=== PATIENT | male | born 1975 | race Caucasian/White ===

== ENCOUNTER 2019-06-23 21:18 | Observation (INO) ==
[2019-06-23] MEDS ORDERED: PREDNISONE PO ONE (21:56)
[2019-06-23] MEDS ORDERED: ZYRTEC PO ONE (21:56)
[2019-06-23] MEDS ORDERED: BENADRYL IV ONE (22:00)
[2019-06-23] MEDS ORDERED: EPIPEN IM ONE (22:00)
[2019-06-23] MEDS ORDERED: EPINEPHRINE IM ONE (22:15)
[2019-06-23 22:40] LABS: BASO# 0.02 X1000 (0.0-0.2); BASO% 0.2 % (0.0-0.8); EOS# 0.64 X1000 (0.0-0.7); EOS% 4.9 % (0.0-10.0); HEMATOCRIT 43.5 % (42.0-52.0); HEMOGLOBIN 14.7 g/dL (14.0-18.0); IMM GRAN# 0.03 X1000 (0.0-0.04); IMM GRAN% 0.2 % (0.0-0.5); LYMPH# 4.23 X1000 (1.2-3.4); LYMPH% 32.5 % (20.5-51.1); MCH 29.1 PG (27-31); MCHC 33.8 g/dL (33-37); MONO# 0.86 X1000 (0.11-0.59); MONO% 6.6 % (1.7-9.3); MPV 11.4 FL (7.4-10.4); NEUT# 7.22 X1000 (1.4-6.5); NEUT% 55.6 % (42.2-75.2); PLT 232 X1000 (130-400); RBC 5.06 XMIL (4.7-6.1); RDW 12.7 % (11.5-14.5)
[2019-06-23 23:16] LABS: AGAP 11; ALB/GLOB RATIO 1.4; ALBUMIN 3.9 g/dL (3.5-5.0); ALKALINE PHOSPHATASE 61 U/L (32-122); BUN 20 mg/dL (8-22); CALCIUM 8.9 mg/dL (8.8-10.2); CHLORIDE 104 mmol/L (98-107); COSMO 281; CREATININE 1.2 mg/dL (0.7-1.2); ESTIMATED GFR > 60; GLUCOSE 110 mg/dL (70-104); GOT 19 U/L (10-34); GPT 16 U/L (10-44); SODIUM 139 mmol/L (136-145); TCO2 24 mmol/L (25-35); TOTAL BILIRUBIN 0.57 mg/dL (0.20-1.00); TOTAL PROTEIN 6.7 g/dL (6.3-8.3)
[2019-06-23] MEDS ORDERED: NS 1,000 ML IV SCH (23:45)
[2019-06-24] MEDS: PEPCID IV SCH ×2 (00:15→13:20)
[2019-06-24] MEDS ORDERED: SODIUM CHLORIDE 0.9% INJ SCH (00:15)
[2019-06-24] MEDS: SOLU-MEDROL IV SCH ×2 (00:30→10:42)
--- NOTE | 2019-06-24 02:39 | PROVIDER DOCUMENTATION ---
This chart was entered by Dedra Thorne Scribe, acting as scribe for Antwon Grimes MD. HPI-Rash/Wound/ReCheck - General Chief Complaint: Allergic Reaction Stated Complaint: "ANGIOEDEMA, HIVES" Time Seen by Provider: 06/23/19 21:45 Source: patient Allergies/Adverse Reactions: Allergies Allergy/AdvReac Type Severity Reaction Status Date / Time povidone-iodine AdvReac RASH Verified 05/09/19 14:34 [From Betadine] soap [From Betadine] AdvReac RASH Verified 05/09/19 14:34 Home Medications: Home Medication List Medication Instructions Recorded Confirmed Last Taken Type Famotidine [Pepcid] 20 mg PO DAILY 06/24/19 06/24/19 Unknown History Loratadine 10 mg PO DAILY 06/24/19 06/24/19 Unknown History - History of Present Illness-Dermatology Nature of Presenting Problem: Pt is a 44 yr old male presenting with allergic reaction, swelling to face, eyes, mouth, tongue. Pt denies any shortness of breath, cough or chest pain. Pt reports hx of same previously which did improve with steroids at home. This episode today started this evening after dinner. The patient did try to take some of his loratidine and famotidine without improvement. Pt denies any allergen contact, but does report allergy to iodine. Pt denies abdominal pain. Pt does report previous hx of hives. Location: reports: face Severity: reports: moderate Onset/Duration: reports: 1-3 hours ago Timing: reports: still present, changing over time Context/Associated Symptoms: reports: edema (face) Identifiable cause?: No Exposure: reports: unknown cause Modifying Factors: improves with: antihistamine (no relief), prednisone (previous episodes) Locality of Occurance: Home Similar Symptoms Previously?: Yes Recently seen or treated by another doctor?: No Review of Systems - Adult - REVIEW OF SYSTEMS - ADULT Constitutional: reports: no symptoms reported Eyes: reports: other (swelling around eyes) Ears, Nose, Mouth & Throat: reports: no symptoms reported. denies: throat swelling Cardiovascular: reports: no symptoms reported. denies: chest pain Respiratory: reports: no symptoms reported. denies: shortness of breath Gastrointestinal: reports: no symptoms reported. denies: abdominal pain Genitourinary: reports: no symptoms reported. denies: flank pain Musculoskeletal: reports: no symptoms reported. denies: back pain Integumentary: reports: no symptoms reported Neurological: reports: no symptoms reported Psychiatric: reports: no symptoms reported. denies: alcohol/drug dependence Endocrine: reports: no symptoms reported Hematologic/Lymphatic: reports: no symptoms reported Allergic/Immunologic: reports: food allergy, other (angioedema) Past History - Adult - PAST MEDICAL HISTORY-ADULT Review of Records: reports: Old Records Reviewed, Nursing Assessment Review, Medications Reviewed Cardiovascular: reports: denies history Respiratory: reports: denies history Gastrointestinal: reports: denies history Obstetrical/Gynecological: reports: denies history Genitourinary: reports: denies history Musculoskeletal: reports: denies history Neurological: reports: denies history Endocrine/Immune: reports: denies history Other Conditions: reports: other (angioedema) - IMMUNIZATION STATUS Childhood Immunizations: See Nurse Assessment Flu Vaccine: See Nurse Assessment - FAMILY HISTORY Family History: reviewed, not pertinent - SOCIAL HISTORY Smoking: cigarettes Substance Use: none/never Alcohol Use Frequency: never Living Situation: family Physical Exam-General - PHYSICAL EXAM-ADULT Initial Vital Signs Reviewed: Yes - CONSTITUTIONAL General Appearance: appears well, alert, no apparent distress - EYES Eyes: negative: conjuctival exudate, scleral icterus - HEAD, EARS, NOSE, MOUTH & THROAT HENMT: normocephalic/atraumatic, moist mucous membranes, angioedema, other (tongue swollen on the left side, and noted swelling of the lips) - NECK Neck: non-tender, supple - RESPIRATORY Respiratory: lungs clear, normal breath sounds, no respiratory distress. negative: crackles, stridor, wheezing - CARDIOVASCULAR Cardiovascular: regular rate, rhythm, no edema - GASTROINTESTINAL (ABDOMEN) Abdominal Exam: non tender, soft - MUSCULOSKELETAL Extremity: non-tender. negative: deformity, swelling - SKIN Integumentary: normal color, warm/dry - NEUROLOGIC Neurologic: grossly normal - PSYCHIATRIC Psych/Mental Status: normal mood/affect, normal thought content, normal thought process Progress - PLAN OF CARE/RESULTS Result Diagrams: 06/23/19 22:28 06/23/19 22:28 - REASSESSMENT Reassessment #1 Status: other (Scribe note reviewed and updated.) Reassessment #2 Status: other (Pt given steroids, H1 blockers, and epinephrine. Given location and severity of angioedema, including the tongue, will plan to admit with monitoring overnight to ensure no airway compromise. Discussed case with the hospitalist who has accepted the patient.) Departure - Departure Date of Disposition Decision: 06/24/19 Time of Disposition Decision: 23:49 DIAGNOSIS: Angioedema Qualifiers: Encounter type: initial encounter Qualified Code(s): T78.3XXA - Angioneurotic edema, initial encounter Disposition: ADMITTED INPATIENT 09 Certified Medical Emergency: Emergent Condition: Fair - Critical Care Note This patient required my direct & personal management of CC.: No Attestation - Physician/ ROBYN Attestation Patient care was provided by Advanced Practice Provider:: No The physician spent face to face time with patient:: Yes Advanced Practice Provider documentation review:: Supervising physician onsite and consulted in the evaluation and care of this patient. The physician did have a face to face encounter with the patient. This chart was documented by the indicated scribe, (Dedra Thorne, [place]) and accurately reflects the services I performed and decisions made by me, Antwon Grimes MD, as attested by the provider's signature.
--- NOTE | 2019-06-24 06:41 | HISTORY AND PHYSICAL ---
CHIEF COMPLAINT: Swelling involving lips and tongue. HISTORY OF PRESENT ILLNESS: Mr. Gato Smith is a 44-year-old male who has a history of angioedema as well as a hives. He presents to the hospital because of swelling, numbness and also itching involving the lips, along with swelling involving the tongue. The patient not exactly sure what may have triggered this event. But possibly caused by food items with iodine. He has had similar presentations in the past. Denies any dysphagia or swelling at the back of his throat. The patient was seen and evaluated in the ER. He did receive cetirizine 20 mg, Benadryl 50 mg IV, epinephrine 0.3 mg IM as well as prednisone 40 p.o. The patient has now been admitted to the floor now for further management. PAST MEDICAL HISTORY: That of angioedema as well as hives. SOCIAL HISTORY: He smokes cigarettes. Drinks alcohol. No drug use. ALLERGIES: Possibly iodine. FAMILY HISTORY: Positive for coronary disease. MEDICATIONS: Loratadine as well as famotidine. PAST SURGICAL HISTORY: He has had ganglion cyst removal from right wrist. REVIEW OF SYSTEMS: Constitutional: No fever. Headaches. Eyes: No blurred vision. ENT: Has hearing problems. Cardiovascular: No chest pain. Respiratory: No cough. Gastrointestinal: No nausea, vomiting, abdominal pain. Genitourinary: No dysuria. Dermatology: No skin lesions. Hematology: No bleeding problems. Musculoskeletal: Has joint pains. Psychiatric: No anxiety or depression. Endocrine: No thyroid disease or diabetes. Allergic/immunologic: No symptoms suggestive of allergic rhinitis. PHYSICAL EXAMINATION: VITAL SIGNS: As follows: Temperature 97.7 degrees, pulse 72, respiratory rate 16, blood pressure 127/76, oxygen saturation 97%. HEENT: Atraumatic, normocephalic. He is anicteric. Extraocular movements intact. No oral lesions. NECK: No lymphadenopathy or thyromegaly. CARDIOVASCULAR: S1, S2. RESPIRATORY SYSTEM: Has evidence of good air entry bilaterally. ABDOMEN: Soft, nontender. No masses felt. EXTREMITIES: No evidence of edema. CENTRAL NERVOUS SYSTEM: No obvious focal deficit noted. LABORATORY DATA: WBC is 13,000, hematocrit 43.5, with a platelet count of 28,000. Sodium is 139, potassium 4.0, chloride is 104, bicarb 24, BUN is 20, creatinine is 1.2. ASSESSMENT AND PLAN: Angioedema. We will maintain patient on H1 as well as H2 paula along with steroids. We will closely monitor patient's oxygenation. The patient will need to be advised to avoid food items that typically will provoke an episode. The patient can be discharged home later today. cc: Aly Nwe MD
[2019-06-24] MEDS ORDERED: PRILOSEC PO SCH (07:00)
[2019-06-24] MEDS ORDERED: ZYRTEC PO SCH (09:00)
[2019-06-24 14:33] VITALS: BP 139/81
--- NOTE | 2019-06-24 17:29 | DISCHARGE SUMMARY ---
ADMISSION DATE: 06/23/2019 DISCHARGE DATE: 06/24/2019 DISPOSITION: Home. FOLLOW UP: Patient's PCP. He as been given a list of PCPs in the community to follow up with. ADMISSION DIAGNOSIS: Angioedema. DISCHARGE DIAGNOSES: 1. Angioedema. 2. Recurrent history of allergy reactions. DISCHARGE MEDICATIONS: 1. Loratadine 10 mg p.o. daily. 2. Prednisone 50 mg daily for 2 days and taper every 2 days until 5 mg. 3. Famotidine 20 mg p.o. daily. 4. EpiPen as needed. PRESENTING COMPLAINT: Swelling involving lips and tongue. HISTORY OF PRESENTING COMPLAINT: Mr. Smith is a 44-year-old gentleman with a history of recurrent allergy reaction. He said he has been told that he is allergic to shellfish, and has had multiple allergy reactions. He is chronically on Pepcid and loratadine which he just ran out. He also has an EpiPen. Unfortunately, he said yesterday he does not really know what might have triggered this episode, but he started having itching everywhere with hives and the tongue started to swell so he came to the hospital where he was evaluated, and admitted for observation. This morning he refers to be doing a whole lot better. All the symptoms have receded, and he is hemodynamically stable. We think he can go home on tapering steroid dose and loratadine with Pepcid. I have also given a prescription for EpiPen. Mr. 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 All the discharge instructions have been discussed with her. Her entire family including and kids were all there at the time of the discharge instructions, and they all voiced understanding. TIME SPENT: Time spent for discharge is 38 minutes. cc: Maximus Roblero MD
== END 2019-06-24 15:05 | disposition home or self-care (01) ==
LOC: ED 21:18 → SUATTDRO 21:19 → 3N 21:19 → INTOOBSV 21:19
PROVIDERS: ATTEND Internal Medicine